=== PATIENT | male | born 1980 | race Caucasian/White ===

== ENCOUNTER 2018-07-17 18:34 | Emergency (ER) | payer MEDICAID ==
[~2018-07-17] VITALS: Ht 170.2 cm; Wt 80.3 kg
[2018-07-17 18:53] VITALS: Ht 170.2 cm; Wt 80.3 kg
[2018-07-17 20:43] VITALS: BP 102/65
== END 2018-07-17 20:43 | disposition home or self-care (01) ==
LOC: ED 18:34
DX: J02.9 Acute pharyngitis, unspecified (principal); K12.0 Recurrent oral aphthae

== ENCOUNTER 2019-06-08 20:21 | Emergency (ER) | payer SELFPAY ==
[~2019-06-08] VITALS: Ht 165.1 cm; Wt 83.0 kg
[2019-06-08 20:31] VITALS: Ht 165.1 cm; Wt 83.0 kg
[2019-06-08 21:57] VITALS: BP 132/71
== END 2019-06-08 21:57 | disposition home or self-care (01) ==
LOC: ED 20:21
DX: S46.911A Strain of unspecified muscle, fascia and tendon at shoulder and upper arm level, right arm, initial encounter (principal); V00.131A Fall from skateboard, initial encounter; Y93.51 Activity, roller skating (inline) and skateboarding; Y92.89 Other specified places as the place of occurrence of the external cause; Y99.8 Other external cause status

== ENCOUNTER 2020-03-31 03:11 | Emergency (ER) | payer OTHER ==
[~2020-03-31] VITALS: Ht 172.7 cm; Wt 88.0 kg
[2020-03-31 03:15] VITALS: BP 146/92; Ht 172.7 cm; Wt 88.0 kg
== END 2020-03-31 05:25 | disposition home or self-care (01) ==
LOC: ED 03:11
DX: S86.912A Strain of unspecified muscle(s) and tendon(s) at lower leg level, left leg, initial encounter (principal); W10.9XXA Fall (on) (from) unspecified stairs and steps, initial encounter; Y93.89 Activity, other specified; Y92.89 Other specified places as the place of occurrence of the external cause; Y99.8 Other external cause status
CPT/HCPCS: J1885; Q0092